=== PATIENT | female | born 1960 | race Caucasian/White ===

== ENCOUNTER 2018-03-09 17:00 | Emergency (ER) | payer BC ==
[~2018-03-09] VITALS: Ht 172.7 cm; Wt 131.0 kg
[2018-03-09 22:55] VITALS: BP 144/76
== END 2018-03-09 23:00 | disposition home or self-care (01) ==
LOC: ER 17:01
DX: M25.562 Pain in left knee (principal); M16.12 Unilateral primary osteoarthritis, left hip; Z96.652 Presence of left artificial knee joint; W18.30XA Fall on same level, unspecified, initial encounter; Y93.89 Activity, other specified; Y92.89 Other specified places as the place of occurrence of the external cause; Y99.8 Other external cause status
CPT/HCPCS: 72192; 73502; 73560; 99284

== ENCOUNTER 2018-09-23 09:07 | Day surgery (SDC) | payer BC ==
[2018-09-23] VITALS (9 sets, daily range): BP systolic 110–159; BP diastolic 45–72
[~2018-09-23] VITALS: Ht 172.7 cm; Wt 131.3 kg
[2018-09-23] MEDS ORDERED: diphenhydrAMINE 25mg capsule PO PRN (09:30)
[2018-09-23] MEDS ORDERED: normal saline 1,000 ML IV SCH ×2 (09:30→12:05)
[2018-09-23] MEDS ORDERED: SERT100T10 PO (09:44)
[2018-09-23] MEDS ORDERED: CARB100T7 PO (09:44)
[2018-09-23] MEDS ORDERED: BUPR150T8 PO (09:44)
[2018-09-23] MEDS ORDERED: midazolam 2 mg/2 ml injection ONE ×3 (10:02→10:40)
[2018-09-23] MEDS ORDERED: iohexol 350MG/ML 100ml bottle IV ONE (10:02)
[2018-09-23] MEDS ORDERED: fentaNYL/PF 50MCG/1 ML 2ML syringe ONE (10:02)
[2018-09-23] MEDS ORDERED: iohexol 350 MG/ML 50ML vial IV ONE (10:02)
[2018-09-23] MEDS ORDERED: LIDOcaine 1% (10mg/ml)w/preservative injection 20ml MDV ONE (10:02)
[2018-09-23 10:07] LABS: BASOPHILS # (AUTO) 0.1 X10'3 (0-0.2); BASOPHILS % (AUTO) 0.6 % (0-1); EOSINOPHILS # (AUTO) 0.3 X10'3 (0-0.9); EOSINOPHILS % (AUTO) 2.8 % (0-6); HEMATOCRIT 23.7 % (35.0-45.0); HEMOGLOBIN 7.9 g/dl (12.0-16.0); LYMPHOCYTES # (AUTO) 1.7 X10'3 (1.1-4.8); LYMPHOCYTES % (AUTO) 18.8 % (21-51); MEAN CORPUSCULAR HEMOGLOBIN 30.1 PG (27.0-31.0); MEAN CORPUSCULAR HGB CONC 33.4 g/dL (33.0-36.5); MEAN CORPUSCULAR VOLUME 90.2 FL (78-98); MONOCYTES # (AUTO) 0.6 X10'3 (0-0.9); NEUTROPHILS # (AUTO) 6.4 X10'3 (1.8-7.7); NEUTROPHILS % (AUTO) 70.8 % (42-75); PLATELET COUNT 366 X10'3 (140-440); RED BLOOD COUNT 2.63 X10'6 (4.20-5.60); RED CELL DISTRIBUTION WIDTH 15.5 % (11.5-14.5); WHITE BLOOD COUNT 9.1 X10'3 (4.5-11.0)
[2018-09-23 10:14] LABS: ALBUMIN 3.2 G/DL (3.4-5.0); ANION GAP 8 (8-16); BLOOD UREA NITROGEN 17 MG/DL (7-18); BUN/CREATININE RATIO 23.6 (6.6-38.0); CALCIUM 8.8 MG/DL (8.5-10.1); CHLORIDE 105 MMOL/L (99-107); CREATININE 0.72 MG/DL (0.40-0.90); GLUCOSE 92 MG/DL (70-104); MAGNESIUM 2.1 MG/DL (1.5-2.4); POTASSIUM 3.7 MMOL/L (3.5-5.1); SODIUM 140 MMOL/L (135-145); eGFR 83 ML/MIN
[2018-09-23] MEDS ORDERED: proCHLORperazine 10 MG/2 ml inj ONE (10:54)
[2018-09-23] MEDS ORDERED: HYDROmorphone 1 mg/ml syringe ONE (11:00)
[2018-09-23] MEDS ORDERED: ketorolac trometh. 30mg/ml inj. IV ONE (12:50)
[2018-09-23] MEDS ORDERED: ketorolac tromethamine 15mg/ml inj. IV ONE (12:55)
== END 2018-09-23 14:55 | disposition home or self-care (01) ==
LOC: SSTAY O 09:07
PROVIDERS: ATTEND Internal Medicine Cardiovascular Disease
DX: I25.10 Atherosclerotic heart disease of native coronary artery without angina pectoris (principal); M19.90 Unspecified osteoarthritis, unspecified site; F31.76 Bipolar disorder, in full remission, most recent episode depressed; Z82.49 Family history of ischemic heart disease and other diseases of the circulatory system; Z79.899 Other long term (current) drug therapy; Z80.0 Family history of malignant neoplasm of digestive organs; Z98.890 Other specified postprocedural states
CPT/HCPCS: 36415; 80048; 83735; 85025; 85610; 93005; 93458; 99152; 99153; A6257; C1769; C1894; J0780; J1170; J1644; J1885; J2001; J2250; J3010; J7030; Q0163; Q9967; A4620; C1760

== ENCOUNTER 2024-09-27 09:02 | Day surgery (SDC) | payer BC, OTHER ==
[2024-09-21 14:56] LABS: MEAN PLATELET VOLUME 7.6 FL (7.4-10.4); PRE OP HEMATOCRIT 38.2 % (35.0-45.0); PRE OP HEMOGLOBIN 12.7 g/dL (12.0-16.0); PRE OP PLATELET COUNT 348 X10'3 (140-440); PRE OP WHITE BLOOD COUNT 8.9 10'3 (4.8-10.8); RED CELL DISTRIBUTION WIDTH 15.5 % (11.5-14.5)
[2024-09-21 15:08] LABS: CREATININE 0.83 MG/DL (0.40-0.90); PRE OP ALT 19 U/L (30-65); PRE OP ANION GAP 9 (8-16); PRE OP BILIRUB, TOTAL 0.2 MG/DL (0.0-1.0); PRE OP GLUCOSE 95 MG/DL (70-104); PRE OP POTASSIUM 4.1 MMOL/L (3.4-5.1); PRE OP SODIUM 140 MMOL/L (135-145); TOTAL CARBON DIOXIDE 26.6 MMOL/L (24-32); eGFR 69 ML/MIN
[2024-09-21 15:16] LABS: PRE OP AST 16 U/L (10-37)
[~2024-09-27] VITALS: Ht 172.7 cm; Wt 134.9 kg
[2024-09-27] VITALS (8 sets, daily range): BP systolic 113–149; BP diastolic 52–74; PULSE 55–63; RESP 11–17; TEMP 97.3; O2SAT 97–99
[2024-09-27] MEDS: CEFAZOLIN 3GM/DEXTROSE 150mL 150 ML IV ONE (05:30)
[~2024-09-27 09:02] MED LIST: BUPR-344 PO; CHOL20004 PO; MULT-1249 PO; SERT-433 PO
[2024-09-27] MEDS: ringers solution, lacted 1,000 ML IV SCH (09:31)
[2024-09-27] MEDS ORDERED: BUPIVAcaine 2.5mg/ml inj 50ml vial (contains preservative) ONE (10:34)
[2024-09-27] MEDS: BUPIVAcaine/PF 2.5 mg/ml (0.25%) 30ml vial IJ ONE (12:00)
--- NOTE | 2024-09-27 17:20 | OPERATIVE REPORT ---
DATE OF SURGERY: 09/27/2024 DICTATING PHYSICIAN: Froylan Mirza MD PREOPERATIVE DIAGNOSIS: Right carpal tunnel syndrome. POSTOPERATIVE DIAGNOSIS: Right carpal tunnel syndrome. PROCEDURE PERFORMED: Right open carpal tunnel release. SURGEON: Froylan Mirza MD EXTENSION SERVICE SPECIALIST: No materials assistant. ANESTHESIA: [place] block regional anesthesia. ANESTHESIOLOGIST: Dr. Valderrama. FINDINGS: The patient was found to have stenotic carpal tunnel with median nerve compression, moderate degree. COMPLICATIONS: None. IMPLANTS USED: None. BLOOD LOSS: Nil. SPECIMENS REMOVED: None. DESCRIPTION OF PROCEDURE: The patient was taken to the operating room after I had obtained informed consent and signed to her right upper extremity. She was given prophylactic intravenous antibiotics, taken to the operating room, given a regional anesthetic with some IV sedation. Once this was accomplished, the arm was prepped and draped in the usual sterile orthopedic fashion. Surgical timeout was taken and the case was begun. This was a [place] block, so it was under tourniquet. A midline palmar incision was made measuring approximately 2.5 inches starting from the distal transverse wrist flexor crease extending distally, following the fourth ray. Dissection was then carried down to the palmar fascia. Hemostasis was achieved with electrocautery. The transverse carpal ligament was appreciated and entered with blunt tenotomy scissors proximally to visualize the median nerve. A slotted dilator was used, placing underneath the transverse carpal ligament to protect the median nerve along its radial border. This helped protect the median nerve at all times, protecting the suture blade from encroaching on the median nerve. Complete release was accomplished from the proximal to distal fascia direction in this fashion, achieving decompression of the transverse carpal ligament. The median nerve was found to dilate nicely. The release proximally was accomplished by elevating the skin edges proximally and using the same retractor in the opposite direction to protect the median nerve. The area was then copiously irrigated with antibiotic-impregnated normal saline as well as local anesthetic. It was injected proximally for postoperative pain management. Closure was accomplished with vertical mattress sutures of 4-0 nylon sealed with Dermabond skin glue, Telfa dressings, 4 x 4 dressings, ____ dressing, and Christian wrap was applied to the hand, wrist, and arm. The tourniquet had been released. Good capillary refill returned to the digits. The patient was now transferred to the recovery room in stable condition. There were no apparent complications. Needle and sponge count was correct. Froylan Mirza MD TID: [id number] RECEIPT: [id number] NIMISHA/PAULO
== END 2024-09-27 13:26 | disposition home or self-care (01) ==
LOC: PAS 09:02
PROVIDERS: ATTEND Orthopaedic Surgery
DX: G56.01 Carpal tunnel syndrome, right upper limb (principal); E78.00 Pure hypercholesterolemia, unspecified; E66.01 Morbid (severe) obesity due to excess calories; F41.9 Anxiety disorder, unspecified; F32.A Depression, unspecified; Z79.899 Other long term (current) drug therapy; Z90.710 Acquired absence of both cervix and uterus; Z96.652 Presence of left artificial knee joint; Z96.642 Presence of left artificial hip joint; Z98.890 Other specified postprocedural states; Z68.42 Body mass index [BMI] 45.0-49.9, adult; Z82.49 Family history of ischemic heart disease and other diseases of the circulatory system
CPT/HCPCS: 64721; 80053; 82948; 85025; J3490; J7030; J7120; Z7506; Z7512; A4215; A4618; A6258; A6449; A7000

== ENCOUNTER 2025-02-14 05:19 | Day surgery (SDC) | payer OTHER ==
[2025-02-07 11:12] LABS: MEAN PLATELET VOLUME 8.0 FL (7.4-10.4); PRE OP HEMATOCRIT 36.4 % (35.0-45.0); PRE OP HEMOGLOBIN 11.9 g/dL (12.0-16.0); PRE OP PLATELET COUNT 349 X10'3 (140-440); PRE OP WHITE BLOOD COUNT 7.5 10'3 (4.8-10.8); RED CELL DISTRIBUTION WIDTH 15.2 % (11.5-14.5)
[2025-02-07 11:34] LABS: CREATININE 0.83 MG/DL (0.40-0.90); PRE OP ALT 14 U/L (30-65); PRE OP ANION GAP 7 (8-16); PRE OP AST 17 U/L (10-37); PRE OP BILIRUB, TOTAL 0.2 MG/DL (0.0-1.0); PRE OP GLUCOSE 85 MG/DL (70-104); PRE OP POTASSIUM 3.8 MMOL/L (3.4-5.1); PRE OP SODIUM 142 MMOL/L (135-145); TOTAL CARBON DIOXIDE 30.0 MMOL/L (24-32); eGFR 69 ML/MIN
[2025-02-14] VITALS (7 sets, daily range): BP systolic 113–144; BP diastolic 59–75; PULSE 55–64; RESP 11–16; TEMP 96.9; O2SAT 94–98
[~2025-02-14] VITALS: Ht 170.2 cm; Wt 93.0 kg
[~2025-02-14 05:19] MED LIST changes: -BUPR-344 PO; +BUPR-480 PO; -CHOL20004 PO; -MULT-1249 PO
[2025-02-14] MEDS ORDERED: ringers solution, lacted 1,000 ML IV SCH ×2 (05:30→07:25)
[2025-02-14] MEDS: ceFAZolin 2gm/dext,iso 50mL 50 ML IV ONE (05:50)
[2025-02-14] MEDS ORDERED: BUPIVAcaine 2.5mg/ml inj 50ml vial (contains preservative) ONE (06:41)
[2025-02-14] MEDS ORDERED: labetalol 20mg/4ml (5mg/ml) syringe IV PRN (07:25)
[2025-02-14] MEDS ORDERED: morphine 4 MG/ML inj SYRINge IV PRN (07:25)
[2025-02-14] MEDS ORDERED: hydrALAZINE 20mg/ml inj. IV PRN (07:25)
[2025-02-14] MEDS ORDERED: acetaminophen 1,000mg/100ml IV 100 ML IV PRN (07:25)
[2025-02-14] MEDS ORDERED: HYDROmorphone/PF 0.2 MG/ML SYRINGE IV PRN ×2 (07:25)
[2025-02-14] MEDS ORDERED: ondansetron/PF 4mg/2ml inj IV PRN (07:25)
[2025-02-14] MEDS ORDERED: fentaNYL/PF 50MCG/1 ML 2ML syringe ONE (07:48)
[2025-02-14] MEDS ORDERED: propofol inj 20 ML IV ONE (08:06)
[2025-02-14] MEDS ORDERED: LIDOcaine 0.5% (5mg/ml) 50ml vial ONE (08:06)
[2025-02-14] MEDS ORDERED: midazolam 1 mg/ML 2ml injection ONE (08:06)
[2025-02-14] MEDS ORDERED: LIDOcaine 1% (10mg/ml) 2ml vial ONE (08:06)
--- NOTE | 2025-02-14 09:45 | OPERATIVE REPORT ---
DATE OF SURGERY: 02/14/2025 DICTATING PHYSICIAN: Froylan Mirza MD PREOPERATIVE DIAGNOSIS: Left carpal tunnel syndrome. POSTOPERATIVE DIAGNOSIS: Left carpal tunnel syndrome. PROCEDURE PERFORMED: Left open carpal tunnel release. SURGEON: Froylan Mirza MD MOLD BUILDER: No court assistant. ANESTHESIOLOGIST: Dr. Valderrama, regional IV [place] block. FINDINGS: Significant entrapment of the median nerve at the left carpal tunnel. COMPLICATIONS: None. IMPLANTS USED: No implants. BLOOD LOSS: Minimal. SPECIMENS REMOVED: No specimen was removed. DESCRIPTION OF PROCEDURE: The patient was taken to the operating room after I obtained informed consent and signed her left upper arm. She was now taken to the operating room and given some IV sedation and the left arm was prepared for a [place] block. Once this was administered and an appropriate level of anesthesia was achieved, the arm was prepped and draped in the usual sterile orthopedic fashion. This was a forearm nerve block. Surgical timeout now was taken per protocol and the case began. A midline palmar incision was made measuring approximately 3 inches starting from the distal transverse wrist flexor crease extending distally. Dissection was then carried through the palmar fascia and subcutaneous tissue to visualize the transverse carpal ligament. This was now entered with blunt tenotomy scissors to visualize the median nerve, which was now protected with a V-shaped dilator. Following the ulnar border of the median nerve, this was used to protect the median nerve at all times while the transverse carpal ligament was released through the tenotomy scissors in a proximal to distal fashion. Complete decompression of the carpal tunnel was accomplished in this way. Release proximally was accomplished by elevating the skin edge and protecting the nerve in the same fashion. The area was irrigated with Novocaine as well as antiseptic Irrisept solution prior to closure. Hemostasis was achieved with electrocautery. Vertical mattress sutures of 4-0 nylon was used for closure and it was supported with Dermabond skin glue. Telfa dressing, sterile 4 x 4s and sterile soft roll was used all held in place with an Christian wrap. Tourniquet now was released and good capillary refill returned to all digits. The patient was then transferred to the [facility] and recovery room in stable condition. There were no apparent perioperative complications. Needle and sponge count was correct. Froylan Mirza MD TID: [id number] RECEIPT: [id number] NIMISHA/DONTE
== END 2025-02-14 09:14 | disposition home or self-care (01) ==
LOC: PAS 05:19
PROVIDERS: ATTEND Orthopaedic Surgery
DX: G56.02 Carpal tunnel syndrome, left upper limb (principal); E78.5 Hyperlipidemia, unspecified; E66.9 Obesity, unspecified; Z68.32 Body mass index [BMI] 32.0-32.9, adult; Z79.899 Other long term (current) drug therapy; Z96.642 Presence of left artificial hip joint; Z96.652 Presence of left artificial knee joint; Z90.710 Acquired absence of both cervix and uterus; Z82.49 Family history of ischemic heart disease and other diseases of the circulatory system; Z98.890 Other specified postprocedural states
CPT/HCPCS: 36415; 64721; 80053; 82948; 85025; J2003; J2250; J2704; J3010; J3490; J7030; J7120; Z7506; Z7512; A4215; A4618; A6449; A7000